=== PATIENT | female | born 2000 | race Caucasian/White ===

== ENCOUNTER 2018-04-02 01:44 | Inpatient (IN) | payer BC ==
--- NOTE | 2018-04-02 02:32 | ED ---
Psych HPI - General Chief Complaint: Psychiatric Symptoms Stated Complaint: Mental Health Time Seen by Provider: 04/02/18 02:24 Source: patient, RN notes reviewed Mode of arrival: ambulatory - History of Present Illness Initial Comments: This is a 17-year-old female who presents to the emergency department with chief complaint of suicidal ideation and attempt. Patient states that she has not been taking her antidepressant and antipsychotic medications for the past one week. She states that many things have been going wrong in her life recently and she does not want to be here anymore. She states that she has had suicidal ideation in the past but tonight was her first attempt. She states that she cut both of her wrists with a razor and her mother found her. Denies any homicidal ideation. Denies visual or auditory hallucinations. Denies alcohol or illicit drug use. Denies any recent illnesses or major medical problems. Denies fever, chills, chest pain, shortness of breath, abdominal pain , nausea or vomiting, constipation or diarrhea, dysuria or hematuria, numbness or tingling, headache or vision changes. - Related Data Previous Rx's Medication Instructions Recorded FLUoxetine HCL [PROzac] 20 mg PO DAILY #30 cap 12/17/17 Imipramine [Tofranil] 25 mg PO HS #30 tab 12/17/17 Loratadine [Claritin] 10 mg PO DAILY tab 12/17/17 OLANZapine [ZyPREXA] 15 mg PO HS #30 tab 12/17/17 Allergies Allergy/AdvReac Type Severity Reaction Status Date / Time No Known Allergies Allergy Verified 04/02/18 06:00 Review of Systems ROS Statement: Those systems with pertinent positive or pertinent negative responses have been documented in the HPI. ROS Other: All systems not noted in ROS Statement are negative. Past Medical History Past Medical History: No Reported History History of Any Multi-Drug Resistant Organisms: None Reported Past Surgical History: No Surgical Hx Reported Past Anesthesia/Blood Transfusion Reactions: No Reported Reaction Past Psychological History: Anxiety, Depression Smoking Status: Current every day smoker Past Alcohol Use History: None Reported Past Drug Use History: Marijuana - Past Family History Mother Family Medical History: No Reported History Father History Unknown: Yes Sister(s) Family Medical History: No Reported History General Exam - General Exam Comments Initial Comments: General: Awake and alert, well-developed; in no apparent distress. HEENT: Head atraumatic, normocephalic. Pupils are equal, round and reactive to light. Extraocular movements intact. Oropharynx moist without erythema or exudate. Neck: Supple. Normal ROM. Cardiovascular: Regular rate and rhythm. No murmurs, rubs or gallops. Chest symmetrical. Respiratory: Lungs clear to auscultation bilaterally. No wheezes, rales or rhonchi. Normal respiratory effort with no use of accessory muscles. Musculoskeletal: Normal ROM, no tenderness bilateral upper and lower extremities. Ambulating normally. Skin: [place], warm and dry. One superficial abrasion right distal forearm. Three superficial lacerations left distal forearm. Neurological: Alert and oriented x3. CN II-XII grossly intact. Speech is fluent and answers are appropriate. No focal neuro deficits. Psychiatric: Normal mood and affect. No overt signs of depression or anxiety noted. Limitations: no limitations Course Vital Signs 04/02/18 04/02/18 01:57 05:21 Temperature 98.0 F 98.5 F Pulse Rate 115 H 80 Respiratory 24 18 Rate Blood Pressure 146/90 112/60 O2 Sat by Pulse 98 97 Oximetry Medical Decision Making - Medical Decision Making This is a 17-year-old female who presented to the emergency department with chief complaint of suicidal ideation and attempt. She states she has been depressed as things have been going wrong in her life. The patient was found cutting her wrists by her mother prior to arrival. Self-inflicted wounds were cleansed and dressings placed. She states that she has not been taking her medications for the past one week. Patient was evaluated by EPS nurse and recommended admission to the psychiatric unit. Patient in agreement with plan. She is in no acute distress. - Lab Data Result diagrams: 04/02/18 08:12 04/02/18 08:12 Disposition Clinical Impression: Attempted suicide, Suicidal ideation Disposition: ADMITTED IP TO THIS HOSP Condition: Stable Is patient prescribed a controlled substance at d/c from ED?: No
[2018-04-02] MEDS ORDERED: MAG HYDROX/AL HYDROX/SIMETH 30 ML CUP PO PRN (05:46)
[2018-04-02] MEDS ORDERED: MAGNESIUM HYDROXIDE 2,400 MG/10 ML CUP PO PRN (05:46)
[2018-04-02] MEDS ORDERED: ACETAMINOPHEN TAB 325 MG TAB PO PRN (05:46)
[2018-04-02] MEDS ORDERED: LORazepam 1 MG TAB PO PRN (05:46)
[2018-04-02 05:58] VITALS: BMI 27.4
[2018-04-02 08:50] LABS: Basophils # (A) 0.1 k/uL (0-0.2); Basophils % (A) 0 %; Eosinophils # (A) 0.2 k/uL (0-0.7); Eosinophils % (A) 2 %; HCT 42.9 % (34.0-46.0); Lymphocytes # (A) 3.4 k/uL (1.0-4.8); Lymphocytes % (A) 23 %; MCH 29.9 pg (25.0-35.0); MCHC 32.6 g/dL (31.0-37.0); MCV 91.8 fL (80.0-100.0); Mean Platelet Volume 7.2; Monocytes # (A) 0.9 k/uL (0-1.0); Monocytes % (A) 6 %; Neutrophils # (A) 9.7 k/uL (1.3-7.7); Neutrophils % (A) 67 %; Platelet Count 379 k/uL (150-450); RBC 4.67 m/uL (3.80-5.40); RDW 13.5 % (11.5-15.5); WBC 14.5 k/uL (4.0-11.0)
[2018-04-02 09:00] LABS: ALT 30 U/L (9-52); AST 23 U/L (14-36); Albumin 4.3 g/dL (3.5-5.0); Alkaline Phosphatase 62 U/L (38-126); Anion Gap 12 mmol/L; Blood Urea Nitrogen 13 mg/dL (7-17); Calcium 9.7 mg/dL (8.4-10.2); Carbon Dioxide 29 mmol/L (22-30); Chloride 104 mmol/L (98-107); Cholesterol 182 mg/dL (<200); Glucose 102 mg/dL (74-99); HDL Cholesterol 47 mg/dL (40-60); LDL Cholesterol,Calculated 112 mg/dL (0-99); Potassium 4.1 mmol/L (3.5-5.1); Sodium 145 mmol/L (137-145); Total Bilirubin 0.2 mg/dL (0.2-1.3); Triglycerides 115 mg/dL (<150)
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
--- NOTE | 2018-04-02 11:51 | P.HPIM ---
History of Present Illness H&P Date: 04/02/18 Chief Complaint: Suicidal ideation and attempt Patient is a 17-year-old female patient of Dr. Huffman who presented to [facility] emergency room with suicidal ideation and attempt. Patient had previous history of suicidal ideation however this is the first time she had a suicidal attempt she tried to cut both wrists with a sharp razor her mother found her and patient was brought into the emergency room. She was evaluated in the emergency room and was admitted to the psychiatry unit medical consultation was requested for management while hospitalized. In the emergency room patient was found to have leukocytosis with white blood count of 14.5 she was also found to have a low TSH of 0.[address] Breanna Huffman as her family physician, she denies any medical problems, she states that Dr. Huffman gives her Prozac and Seroquel but she does not receive any other prescription related to any medical illness. On review of systems patient denies any fever or chills no headache or dizziness no chest pain or shortness of breath no cough no nausea or vomiting no abdominal pain no burning with urination no frequency or urgency. Past Medical History Past Medical History: No Reported History History of Any Multi-Drug Resistant Organisms: None Reported Past Surgical History: No Surgical Hx Reported Past Anesthesia/Blood Transfusion Reactions: No Reported Reaction Past Psychological History: Anxiety, Depression Smoking Status: Current every day smoker Past Alcohol Use History: None Reported Past Drug Use History: Marijuana Additional Drug Use History / Comment(s): Patient states that she smokes MJ twice weekly. - Past Family History Mother Family Medical History: No Reported History Father History Unknown: Yes Sister(s) Family Medical History: No Reported History Medications and Allergies Home Medications Medication Instructions Recorded Confirmed Type FLUoxetine HCL [PROzac] 20 mg PO DAILY #30 cap 12/17/17 Rx Imipramine [Tofranil] 25 mg PO HS #30 tab 12/17/17 Rx Loratadine [Claritin] 10 mg PO DAILY tab 12/17/17 Rx OLANZapine [ZyPREXA] 15 mg PO HS #30 tab 12/17/17 Rx Allergies Allergy/AdvReac Type Severity Reaction Status Date / Time No Known Allergies Allergy Verified 04/02/18 06:00 Physical Exam Vitals: Vital Signs Temp Pulse Pulse Resp BP BP Pulse Ox 04/02/18 05:52 98.4 F 90 16 114/67 99 04/02/18 05:21 98.5 F 80 18 112/60 97 04/02/18 01:57 98.0 F 115 H 24 146/90 98 Intake and Output 04/01/18 04/02/18 04/02/18 22:59 06:59 14:59 Other: Weight 61.7 kg In general patient is alert and oriented in no apparent distress she is calm and answering questions appropriately HEENT head normocephalic and atraumatic Neck is supple no JVD no goiter Chest exam reveals clear respiratory sounds no crackles no wheezing Cardiac exam reveals regular heart sounds S1 and S2 no gallops no murmurs Abdomen is soft nontender no hepatosplenomegaly no palpable masses Extremity exam reveals no edema no cyanosis or clubbing On the left wrist. 3 superficial straight cuts on the right wrist there is 1 semicircular deeper cut. Results CBC & Chem 7: 04/02/18 08:12 04/02/18 08:12 Labs: Abnormal Lab Results - Last 24 Hours (Table) 04/02/18 04/02/18 Range/Units 08:12 08:12 WBC 14.5 H (4.0-11.0) k/uL Neutrophils # 9.7 H (1.3-7.7) k/uL Glucose 102 H (74-99) mg/dL LDL Cholesterol, Calc 112 H (0-99) mg/dL TSH 0.071 L (0.465-4.680) mIU/L Thrombosis Risk Factor Assmnt - Choose All That Apply Each Factor Represents 1 point: Obesity (BMI >25), Oral contraceptives or hormone replacement therapy Other Risk Factors: No Other congenital or acquired thrombophilia - If yes, enter type in comment: No Thrombosis Risk Factor Assessment Total Risk Factor Score: 2 Thrombosis Risk Factor Assessment Level: Low Risk Assessment and Plan Plan: #1 suicidal ideation and attempt management per primary psychiatry team #2 leukocytosis, no clear evidence of infection at this time there is no evidence of cellulitis at the bilateral wrist cocked sites, will check chest x- ray portable and urine analysis to rule out any infectious process. Will recheck CBC in a.m.. #3 depressed TSH possible hyperthyroidism, will repeat shortly patient will benefit of being evaluated by an backup operator as outpatient unfortunately we do not have endocrinology service rounding hospitalist. #4 underlying history of depression and anxiety disorder #5 underlying history of tobacco abuse
--- NOTE | 2018-04-02 13:11 | XR ---
EXAMINATION TYPE: XR chest 1V portable DATE OF EXAM: 04/02/2018 CLINICAL HISTORY: Leukocytosis. TECHNIQUE: Single AP portable frontal upright view of the chest is obtained. COMPARISON: None FINDINGS: There is no focal air space opacity, pleural effusion, or pneumothorax seen. The cardiac silhouette size is within normal limits. The osseous structures are intact. IMPRESSION: No acute process.
[2018-04-02] MEDS: BACITRACIN/POLYMYX 500-10,000 UNIT/GM OINT 14 GM TUBE TOPICAL SCH ×2 (13:57→20:07)
[2018-04-02] MEDS: NICOTINE 21MG/24HR PATCH TRANSDERM SCH (17:43)
[2018-04-02 19:24] LABS: Hemoglobin A1C 5.2 % (4.0-6.0)
[2018-04-02 20:49] LABS: Appearance,Urine Cloudy (Clear); Bacteria,Urine Moderate /hpf; Bilirubin,Urine Negative (Negative); Blood,Urine Negative (Negative); Budding Yeast,Urine Occasional /hpf; Color,Urine Yellow; Glucose,Urine (UA) Negative (Negative); Hyaline Casts,Urine 7 /lpf (0-2); Ketones,Urine Negative (Negative); Leukocyte Esterase,Urine Large (Negative); Mucus,Urine Occasional /hpf; Nitrite,Urine Positive (Negative); PH, Urine 8.5 (5.0-8.0); Protein,Urine Trace (Negative); RBC,Urine 12 /hpf (0-5); Specific Gravity,Urine 1.018 (1.001-1.035); Squamous Epithelial Cell,Urine 8 /hpf (0-4); Urobilinogen,Urine <2.0 mg/dL (<2.0); WBC,Urine 53 /hpf (0-5)
[2018-04-02] MEDS: hydrOXYzine PAMOATE 25 MG CAP PO PRN (20:55)
[2018-04-02 20:56] LABS: Amphetamine Screen,Urine Not Detected (NotDetected); Barbiturate Screen,Urine Not Detected (NotDetected); Benzodiazepines Screen,Urine Detected (NotDetected); Cocaine Screen,Urine Detected (NotDetected); Methadone Screen, Urine Not Detected (NotDetected); Opiate Screen,Urine Not Detected (NotDetected); Oxycodone Screen, Urine Not Detected (NotDetected); Phencyclidine Screen,Urine Not Detected (NotDetected); Tricyclic Antidepressant,Urine Not Detected (NotDetected); Urn Cannabinoid Scrn Detected (NotDetected)
[2018-04-02] MEDS ORDERED: QUEtiapine 100 MG TAB PO SCH (21:00)
[2018-04-03] MEDS: NICOTINE 21MG/24HR PATCH TRANSDERM SCH (09:27)
[2018-04-03] MEDS: SULFAMETHOX-TMP 800-160MG 1 EACH TAB PO SCH ×2 (09:27→20:40)
[2018-04-03] MEDS: BACITRACIN/POLYMYX 500-10,000 UNIT/GM OINT 14 GM TUBE TOPICAL SCH ×3 (09:28→20:41)
[2018-04-03 09:35] LABS: ALT 25 U/L (9-52); AST 24 U/L (14-36); Alkaline Phosphatase 49 U/L (38-126); Anion Gap 15 mmol/L; Blood Urea Nitrogen 14 mg/dL (7-17); Calcium 9.2 mg/dL (8.4-10.2); Carbon Dioxide 21 mmol/L (22-30); Chloride 109 mmol/L (98-107); Glucose 132 mg/dL (74-99); Potassium 4.2 mmol/L (3.5-5.1); Sodium 145 mmol/L (137-145); Total Bilirubin 0.3 mg/dL (0.2-1.3); Total Protein 6.5 g/dL (6.3-8.2)
[2018-04-03 09:43] LABS: Basophils # (A) 0.1 k/uL (0-0.2); Basophils % (A) 1 %; Eosinophils # (A) 0.2 k/uL (0-0.7); Eosinophils % (A) 2 %; HCT 41.1 % (34.0-46.0); HGB 13.7 gm/dL (11.4-16.0); Lymphocytes # (A) 3.3 k/uL (1.0-4.8); Lymphocytes % (A) 29 %; MCH 30.8 pg (25.0-35.0); MCHC 33.2 g/dL (31.0-37.0); MCV 92.6 fL (80.0-100.0); Mean Platelet Volume 7.2; Monocytes # (A) 0.6 k/uL (0-1.0); Monocytes % (A) 5 %; Neutrophils % (A) 61 %; Platelet Count 330 k/uL (150-450); RBC 4.44 m/uL (3.80-5.40); RDW 13.8 % (11.5-15.5); WBC 11.4 k/uL (4.0-11.0)
--- NOTE | 2018-04-03 10:22 | P.PN ---
Progress Note - Text Progress Note Date: 04/03/18 Patient was seen for follow-up examination. She was sleeping when I called her name. She did not attend groups. She said she did not sleep well last night and feels tired today. She asked for different kind of antidepressants today. She is on Seroquel and she was counseled about different antidepressants. It was finally agreed to increase Seroquel to 150 mg at bedtime. She was also advised that most likely medications will not help her much and she needs to learn better coping skills through DBT. She agreed to go to [facility] and have ongoing treatment there instead of seeing a family doctor. She was also advised to attend groups. Her drug screening done yesterday is positive for benzodiazepines cocaine and cannabis. She said she is positive for benzodiazepines since she got some Ativan here in the hospital. Her urinalysis shows UTI and she was started on Bactrim DS yesterday. This is a white ambulatory female with adequate hygiene. She has removed the band age on her left forearm and she has very superficial 3 scratch boone over there which was noted as her suicide attempt prior to admission. Currently she is somewhat sleepy. She does not show any psychomotor agitation or retardation. Her speech is spontaneous and goal-directed. Her affect is appropriate to the thought content. She said she is not thinking about suicide anymore. She denies homicidal ideas. She does not have any clinical evidence of hallucinations or delusional thinking. She is oriented with adequate memory concentration etc. Plan: Increase Seroquel to 150 mg at bedtime, continue groups and other therapies.
[2018-04-03] MEDS: hydrOXYzine PAMOATE 25 MG CAP PO PRN (17:45)
[2018-04-03] MEDS: QUEtiapine 100 MG TAB PO SCH (20:41)
[2018-04-04] MEDS: NICOTINE 21MG/24HR PATCH TRANSDERM SCH (08:54)
[2018-04-04] MEDS: SULFAMETHOX-TMP 800-160MG 1 EACH TAB PO SCH ×2 (08:54→20:47)
[2018-04-04] MEDS: hydrOXYzine PAMOATE 25 MG CAP PO PRN (08:55)
[2018-04-04] MEDS: BACITRACIN/POLYMYX 500-10,000 UNIT/GM OINT 14 GM TUBE TOPICAL SCH ×2 (08:56→20:49)
--- NOTE | 2018-04-04 09:44 | P.PN ---
Progress Note - Text Progress Note Date: 04/04/18 Patient was seen for follow-up examination. She came for the examination without the need for calling her several times like she did yesterday. She said she slept better last night and feels better. She continues to deny suicide thoughts. But she wants to stay here until Saturday, attends groups etc. I explained to her that I will keep her here until Saturday if the insurance company is okay with that and if not I had to discharge her today. She was also advised that for her kind of problems longer hospitalization is not recommended. She said she understood and will agreed to be discharged if the insurance company denies to stay. Today she does not have any distressing on her forearms. She has 1 superficial scratch boone on right forearm and 3 on the left forearm, which is a result of self abusive behavior than a real suicide attempt. This is a white ambulatory female with good hygiene. She is polite and cooperative. She does not show any psychomotor agitation or retardation. Her speech is spontaneous relevant and goal-directed. Her mood is euthymic and affect is appropriate. She denies suicide and homicide thoughts. She denies hallucinations and delusional thinking. Her insight is fair and judgment is improving. She is well oriented with good memory concentration general knowledge etc. Plan: Continue Seroquel 150 mg at bedtime, groups and other therapies. Discharge either today or on Saturday, April 07.
[2018-04-04] MEDS: QUEtiapine 100 MG TAB PO SCH (20:47)
[2018-04-05 06:25] VITALS: RESP 16
[2018-04-05] MEDS: SULFAMETHOX-TMP 800-160MG 1 EACH TAB PO SCH ×2 (08:15→20:33)
[2018-04-05] MEDS: NICOTINE 21MG/24HR PATCH TRANSDERM SCH (08:15)
[2018-04-05] MEDS: BACITRACIN/POLYMYX 500-10,000 UNIT/GM OINT 14 GM TUBE TOPICAL SCH ×2 (08:16→20:33)
--- NOTE | 2018-04-05 11:23 | P.PN ---
Progress Note - Text Interval history: The patient is found in her room she follows me to an interview room. Recent progress notes were reviewed. Vital signs reviewed. The patient states her mood is fine today. She has not been attending groups but she states "I don't do groups". She reports no suicidal ideation intent or plan. She is endorsing no symptoms of psychosis. She reports no recent self- injurious behavior. She has no questions or concerns regarding her medications. Mental status exam: The patient is a female appearing her stated age. She is dressed in her own clothing wearing a T-shirt and pajama bottoms. Eye contact is intermittent. She has no spontaneous speech but provides brief answers to questions asked. She indicates she has no suicidal thoughts or any homicidal ideation intent or plan. She is reporting no auditory or visual hallucinations or any specific delusions. There is no observed evidence of psychosis. She demonstrates no circumstantial thinking, tangential thinking, loose associations or flight of ideas. She does not appear hypomanic or manic. She demonstrates no verbal or physical aggressiveness she demonstrates no abnormal involuntary movements. Plan: The patient will continue on her current psychotropic medication. She is encouraged to participate more in the milieu but she remains resistant. We will monitor her for safety. It appears a discharge is planned for Saturday.
[2018-04-05] MEDS: QUEtiapine 100 MG TAB PO SCH (20:33)
[2018-04-06] MEDS: BACITRACIN/POLYMYX 500-10,000 UNIT/GM OINT 14 GM TUBE TOPICAL SCH ×2 (08:11→19:59)
[2018-04-06] MEDS: SULFAMETHOX-TMP 800-160MG 1 EACH TAB PO SCH ×2 (08:11→20:00)
[2018-04-06] MEDS: NICOTINE 21MG/24HR PATCH TRANSDERM SCH (08:11)
--- NOTE | 2018-04-06 10:19 | P.PN ---
Progress Note - Text Interval history: The patient is found in her room. He continues to isolate in her room. She reports she did go down to breakfast. She states that she will not attend groups. She feels her mood is stabilizing. She reports no participation in self-injurious behavior. She has been speaking with her mother via phone and finds those conversation supportive. She plans to return to her mother's home upon discharge. 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 She has no questions regarding psychotropic medication. Mental status exam: The patient is alert she seated calmly in the chair. She stress in her own clothing. She reports her mood is improving she is reporting no suicidal or homicidal ideation intent or plan. She is endorsing no auditory or visual hallucinations. She demonstrates no tangential thinking loose associations or flight of ideas and does not appear hypomanic or manic. Insight and judgment improving. She demonstrates no verbal or physical aggressiveness. Affect overall is constricted. She provides answers to questions asked but has little spontaneous speech. Plan: The patient will continue on her current medication. She anticipates being discharged tomorrow. We will monitor her for safety. Vital signs reviewed.
[2018-04-06] MEDS: QUEtiapine 100 MG TAB PO SCH (20:00)
[2018-04-07 04:02] VITALS: BP 120/67; PULSE 116; TEMP 98.6
[2018-04-07] MEDS: SULFAMETHOX-TMP 800-160MG 1 EACH TAB PO SCH (08:07)
[2018-04-07] MEDS: BACITRACIN/POLYMYX 500-10,000 UNIT/GM OINT 14 GM TUBE TOPICAL SCH (08:08)
[2018-04-07] MEDS: NICOTINE 21MG/24HR PATCH TRANSDERM SCH (08:08)
--- NOTE | 2018-04-07 09:33 | P.DS ---
Providers Date of admission: 04/02/18 05:16 Expected date of discharge: 04/07/18 Attending physician: Erika Kelley Consults: 04/02/18 05:46 Consult Physician Routine Consulting Provider: Marcelino Walters Consult Reason/Comments: H & P Do you want consulting provider notified?: Yes, Notify in am Primary care physician: Krystina Mora [facility] Course: Patient had her psychiatric evaluation, physical examination and psychosocial evaluation. After psychiatric evaluation she agreed to take Seroquel 100 mg at bedtime. It was later on increased to 150 mg at bedtime since she continued to report of sleeping difficulty. She tolerated Seroquel without any adverse effects. She did not exhibit any self abusive behavior and also denied suicidal thoughts. She wanted to stay in the hospital until today so that she could attend groups. But she has not been attending groups regularly. Her urinalysis showed evidence of UTI and she was started on Bactrim DS 1 twice a day which cleared the infection. Condition on discharge: This is a white ambulatory female with good hygiene. She is polite and cooperative. She does not show any psychomotor agitation or retardation. The self inflicted abrasions/scratch boone have healed completely. Her speech is spontaneous and goal-directed. Her mood is euthymic and affect is appropriate. She continues to deny suicide and homicide thoughts. She also denies hallucinations and delusional thinking. She is well oriented with good memory concentration general knowledge etc. Diagnosis on discharge: Borderline personality disorder F 60.3. NKDA. UTI, resolved. Self inflicted scratch boone on forearms, healed. 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 Patient Condition at Discharge: Good Plan - Discharge Summary Discharge Rx Participant: No New Discharge Prescriptions: New QUEtiapine [SEROquel] 150 mg PO HS 30 Days #30 tab Sulfamethox-Tmp 800-160Mg [Bactrim DS 800-160 mg] 1 each PO BID 2 Days #4 tab Discontinued FLUoxetine HCL [PROzac] 20 mg PO DAILY #30 cap Imipramine [Tofranil] 25 mg PO HS #30 tab Loratadine [Claritin] 10 mg PO DAILY tab OLANZapine [ZyPREXA] 15 mg PO HS #30 tab Discharge Medication List QUEtiapine [SEROquel] 150 mg PO HS 30 Days #30 tab 04/07/18 [Rx] Sulfamethox-Tmp 800-160Mg [Bactrim DS 800-160 mg] 1 each PO BID 2 Days #4 tab [Rx] Follow up Appointment(s)/Referral(s): Krystina Mora MD [Primary Care Provider] - 1-2 days
== END 2018-04-07 15:57 | disposition home or self-care (01) | DRG 883 ==
LOC: EC 01:44 → 3MHU 05:16
PROVIDERS: ADMIT Psychiatry & Neurology Psychiatry; ATTEND Psychiatry & Neurology Psychiatry
DX: F60.3 Borderline personality disorder (principal); F33.9 Major depressive disorder, recurrent, unspecified; N39.0 Urinary tract infection, site not specified; F17.200 Nicotine dependence, unspecified, uncomplicated; F41.9 Anxiety disorder, unspecified; S61.511A Laceration without foreign body of right wrist, initial encounter; S61.512A Laceration without foreign body of left wrist, initial encounter; X78.9XXA Intentional self-harm by unspecified sharp object, initial encounter; Z79.899 Other long term (current) drug therapy; Z81.8 Family history of other mental and behavioral disorders; Z91.5 Personal history of self-harm; T14.91XA Suicide attempt, initial encounter
CPT/HCPCS: 71045; 80053; 80061; 80306; 81001; 81025; 82075; 83036; 84443; 85025; 99285

== ENCOUNTER 2018-04-23 14:33 | Inpatient (IN) | payer BC ==
[2018-04-23 14:51] LABS: Glucose,Whole Blood 77 mg/dL (75-99)
[2018-04-23] MEDS ORDERED: SODIUM CHLORIDE 0.9% 1,000 ML IV STA (14:59)
--- NOTE | 2018-04-23 15:12 | ED ---
General Adult HPI - General Chief complaint: Abdominal Pain Stated complaint: Syncope Time Seen by Provider: 04/23/18 14:44 Source: patient, EMS Mode of arrival: EMS Limitations: no limitations - History of Present Illness Initial comments: Leonor Rock is a 17-year-old female with no significant past medical history who presents to the emergency department today for evaluation of nausea, vomiting, lightheadedness and 2 episodes of syncope this evening. Patient reports that she was in her usual state of health throughout the day yesterday, she ate a normal diet including a sandwich and chicken for dinner. She states that her family ate the same food and nobody has become ill. She reports that she slept comfortably throughout the night and woke today around noon. She states that after waking she was experiencing abdominal cramping and nausea. She reports that she's had approximately 20 episodes of nonbloody vomiting since noon today. She states that upon standing she began to feel very lightheaded and as though she couldn't catch her breath. She believes that she has passed out 2 times this afternoon. She is uncertain how long she was passed out for. She states that nobody witnessed these episodes. She states that both times she woke up spontaneously. After the second time she decided to call 911 for transport to the hospital for further evaluation. Denies any history of any known abdominal pathology, cyclic vomiting or inflammatory bowel disease. She denies any history of passing out in the past. She denies any personal or family history of clotting disorder, DVTs or PEs. She is not experiencing shortness of breath prior to these episodes. She denies any chest pain. She is not short of breath upon initial evaluation. She reports that her last menstrual period was approximately a month ago and that she is due to start her menses soon. She states she has no concern for any possibility of . Patient's mother also states that the patient has recently noted that she's bruising very easily. She has noted bruises on her bilateral lateral thighs. The bruises or well-healing but the patient cannot recall how she is obtained these bruises. EMS reports that upon their initial evaluation the patient was mildly hypotensive with a systolic blood pressure of 96 and a blood glucose in the 60s. She was given oral dextrose, Zofran and IV fluids. They report that she has been hemodynamically stable during transport. No further episodes of syncope during transport. - Related Data Home Medications Medication Instructions Recorded Confirmed No Known Home Medications [No 04/23/18 04/23/18 Known Home Medications] Allergies Allergy/AdvReac Type Severity Reaction Status Date / Time No Known Allergies Allergy Verified 04/23/18 15:21 Review of Systems ROS Statement: Those systems with pertinent positive or pertinent negative responses have been documented in the HPI. ROS Other: All systems not noted in ROS Statement are negative. Constitutional: Reports: chills ENT: Denies: throat pain Respiratory: Denies: cough, wheezes Cardiovascular: Reports: syncope (2 times today, both times it occurred upon standing). Denies: chest pain, palpitations, dyspnea on exertion, orthopnea, edema Endocrine: Reports: fatigue Gastrointestinal: Reports: abdominal pain, nausea, vomiting. Denies: diarrhea, constipation Genitourinary: Denies: dysuria, abnormal menses Musculoskeletal: Denies: back pain Skin: Denies: rash, lesions Neurological: Reports: headache Hematological/Lymphatic: Reports: easy bruising. Denies: easy bleeding Past Medical History Past Medical History: No Reported History History of Any Multi-Drug Resistant Organisms: None Reported Past Surgical History: Adenoidectomy Additional Past Surgical History / Comment(s): Eyelid surgery. Past Anesthesia/Blood Transfusion Reactions: No Reported Reaction Past Psychological History: Anxiety, Depression Smoking Status: Current every day smoker Past Alcohol Use History: None Reported Past Drug Use History: Marijuana - Past Family History Mother Family Medical History: No Reported History Father History Unknown: Yes Sister(s) Family Medical History: No Reported History General Exam Limitations: no limitations General appearance: alert Head exam: Present: atraumatic, normocephalic Eye exam: Present: normal appearance, PERRL, EOMI ENT exam: Present: normal exam, normal oropharynx Neck exam: Present: normal inspection Respiratory exam: Present: normal lung sounds bilaterally. Absent: respiratory distress, wheezes Cardiovascular Exam: Present: normal rhythm, tachycardia GI/Abdominal exam: Present: soft, tenderness, normal bowel sounds. Absent: distended, guarding, rebound, rigid, organomegaly, mass Extremities exam: Present: normal inspection, full ROM, normal capillary refill. Absent: tenderness, pedal edema, joint swelling Back exam: Present: normal inspection, full ROM Neurological exam: Present: alert, oriented X3 Psychiatric exam: Present: depressed Skin exam: Present: warm, dry, other (Well healing contusions of the bilateral lateral thighs.) Course Vital Signs 04/23/18 04/23/18 04/23/18 14:47 15:58 16:50 Temperature 97.7 F Pulse Rate 78 97 100 Respiratory 16 17 20 Rate Blood Pressure 91/43 103/51 92/52 O2 Sat by Pulse 99 97 100 Oximetry 04/23/18 04/23/18 04/23/18 17:45 18:45 19:45 Temperature Pulse Rate 107 H 106 H 102 H Respiratory 20 20 20 Rate Blood Pressure 84/42 92/56 96/56 O2 Sat by Pulse 97 99 99 Oximetry 04/23/18 04/23/18 20:26 21:07 Temperature Pulse Rate 102 H 106 H Respiratory 18 18 Rate Blood Pressure 87/48 91/50 O2 Sat by Pulse 100 100 Oximetry EKG Findings - EKG Comments: EKG Findings:: EKG is sinus tachycardia with a rate of 101, there are no acute ST elevations or depressions. There is no evidence of acute ischemia, infarction or arrhythmia. No evidence of acute right heart strain. Medical Decision Making - Medical Decision Making The patient was seen and evaluated, history was obtained from the patient, patient's mother bedside and EMS Patient with persistent nausea and vomiting for 3 hours. Mild hypotension and hypoglycemia upon initial evaluation. Reports 2 episodes of syncope. The patient received Zofran prior to arrival in the emergency department, upon initial evaluation the patient has had one further episode of vomiting. Labs and imaging were ordered Labs with a critical high leukocytosis as well as lactic acidosis of uncertain etiology Patient has an elevated INR of 1.7, uncertain etiology. Patient not on any anticoagulant medications. Transaminases otherwise normal. Workup is negative - troponin and d-dimer negative IV fluids are infusing. The patient remains mildly hypotensive, at this time I do not feel she has an infectious source and antibiotics were not ordered Urine drug screen reveals positive cocaine, when I reevaluated the patient she does admit to cocaine use 2 days ago. She states she didn't think it contributed to her symptoms today. Ultrasound and CT with no acute pathology identified. Patient received a total 4 L of IV fluids throughout her stay in the ER. Despite this she remained hypotensive and symptomatic orthostasis. Patient states she doesn't feel comfortable going home at this time and she is not feeling well. She has been able tolerate oral intake of apple juice and water. At this time I'll plan to place the patient on observation for recurrent syncope, persistent attention, leukocytosis which is likely reactive to recent cocaine use and vomiting Patient care was discussed with Dr. Walters who accepts the patient to his service - Lab Data Result diagrams: 04/23/18 15:10 04/23/18 15:10 Lab Results 04/23/18 04/23/18 04/23/18 Range/Units 14:49 15:10 15:10 WBC (4.0-11.0) k/uL RBC (3.80-5.40) m/uL Hgb (11.4-16.0) gm/dL Hct (34.0-46.0) % MCV (80.0-100.0) fL MCH (25.0-35.0) pg MCHC (31.0-37.0) g/dL RDW (11.5-15.5) % Plt Count (150-450) k/uL Neutrophils % % Lymphocytes % % Monocytes % % Eosinophils % % Basophils % % Neutrophils # (1.3-7.7) k/uL Lymphocytes # (1.0-4.8) k/uL Monocytes # (0-1.0) k/uL Eosinophils # (0-0.7) k/uL Basophils # (0-0.2) k/uL PT 15.8 H (9.0-12.0) sec INR 1.7 H (<1.2) APTT 22.1 (22.0-30.0) sec D-Dimer 0.50 (<0.60) mg/L FEU Sodium (137-145) mmol/L Potassium (3.5-5.1) mmol/L Chloride (98-107) mmol/L Carbon Dioxide (22-30) mmol/L Anion Gap mmol/L BUN (7-17) mg/dL Creatinine (0.52-1.04) mg/dL Est GFR (CKD-EPI)AfAm (>60 ml/min/1.73 sqM) Est GFR (CKD-EPI)NonAf (>60 ml/min/1.73 sqM) Glucose (74-99) mg/dL POC Glucose (mg/dL) 77 (75-99) mg/dL POC Glu Cement Loader ID Bre Haynes Lactic Ac Sepsis Rflx Plasma Lactic Acid Eliezer (0.7-2.0) mmol/L Calcium (8.4-10.2) mg/dL Total Bilirubin (0.2-1.3) mg/dL AST (14-36) U/L ALT (9-52) U/L Alkaline Phosphatase (38-126) U/L Total Creatine Kinase 43 (30-135) U/L CK-MB (CK-2) <0.2 (0.0-2.4) ng/mL CK-MB (CK-2) Rel Index Troponin I <0.012 (0.000-0.034) ng/mL Total Protein (6.3-8.2) g/dL Albumin (3.5-5.0) g/dL Lipase (23-300) U/L Urine Color Urine Appearance (Clear) Urine pH (5.0-8.0) Ur Specific [place] (1.001-1.035) Urine Protein (Negative) Urine Glucose (UA) (Negative) Urine Ketones (Negative) Urine Blood (Negative) Urine Nitrite (Negative) Urine Bilirubin (Negative) Urine Urobilinogen (<2.0) mg/dL Ur Leukocyte Esterase (Negative) Urine RBC (0-5) /hpf Urine WBC (0-5) /hpf Ur Squamous Epith Cells (0-4) /hpf Amorphous Sediment (None) /hpf Hyaline Casts (0-2) /lpf Urine Mucus (None) /hpf Urine HCG, Qual (Not Detectd) Urine Opiates Screen (NotDetected) Ur Oxycodone Screen (NotDetected) Urine Methadone Screen (NotDetected) Ur Propoxyphene Screen (NotDetected) Ur Barbiturates Screen (NotDetected) U Tricyclic Antidepress (NotDetected) Ur Phencyclidine Scrn (NotDetected) Ur Amphetamines Screen (NotDetected) U Methamphetamines Scrn (NotDetected) U Benzodiazepines Scrn (NotDetected) Urine Cocaine Screen (NotDetected) U Marijuana (THC) Screen (NotDetected) 04/23/18 04/23/18 04/23/18 Range/Units 15:10 15:10 15:10 WBC 31.7 H* (4.0-11.0) k/uL RBC 4.32 (3.80-5.40) m/uL Hgb 13.4 (11.4-16.0) gm/dL Hct 39.9 (34.0-46.0) % MCV 92.4 (80.0-100.0) fL MCH 31.0 (25.0-35.0) pg MCHC 33.5 (31.0-37.0) g/dL RDW 13.7 (11.5-15.5) % Plt Count 256 (150-450) k/uL Neutrophils % 87 % Lymphocytes % 7 % Monocytes % 5 % Eosinophils % 0 % Basophils % 0 % Neutrophils # 27.6 H (1.3-7.7) k/uL Lymphocytes # 2.3 (1.0-4.8) k/uL Monocytes # 1.5 H (0-1.0) k/uL Eosinophils # 0.1 (0-0.7) k/uL Basophils # 0.1 (0-0.2) k/uL PT (9.0-12.0) sec INR (<1.2) APTT (22.0-30.0) sec D-Dimer (<0.60) mg/L FEU Sodium 145 (137-145) mmol/L Potassium 4.2 (3.5-5.1) mmol/L Chloride 106 (98-107) mmol/L Carbon Dioxide 19 L (22-30) mmol/L Anion Gap 20 mmol/L BUN 19 H (7-17) mg/dL Creatinine 0.90 (0.52-1.04) mg/dL Est GFR (CKD-EPI)AfAm >90 (>60 ml/min/1.73 sqM) Est GFR (CKD-EPI)NonAf >90 (>60 ml/min/1.73 sqM) Glucose 78 (74-99) mg/dL POC Glucose (mg/dL) (75-99) mg/dL POC Glu Cement Loader ID Lactic Ac Sepsis Rflx Plasma Lactic Acid Eliezer 4.6 H* (0.7-2.0) mmol/L Calcium 9.7 (8.4-10.2) mg/dL Total Bilirubin 0.5 (0.2-1.3) mg/dL AST 30 (14-36) U/L ALT 36 (9-52) U/L Alkaline Phosphatase 69 (38-126) U/L Total Creatine Kinase (30-135) U/L CK-MB (CK-2) (0.0-2.4) ng/mL CK-MB (CK-2) Rel Index Troponin I (0.000-0.034) ng/mL Total Protein 6.7 (6.3-8.2) g/dL Albumin 4.3 (3.5-5.0) g/dL Lipase 84 (23-300) U/L Urine Color Urine Appearance (Clear) Urine pH (5.0-8.0) Ur Specific [place] (1.001-1.035) Urine Protein (Negative) Urine Glucose (UA) (Negative) Urine Ketones (Negative) Urine Blood (Negative) Urine Nitrite (Negative) Urine Bilirubin (Negative) Urine Urobilinogen (<2.0) mg/dL Ur Leukocyte Esterase (Negative) Urine RBC (0-5) /hpf Urine WBC (0-5) /hpf Ur Squamous Epith Cells (0-4) /hpf Amorphous Sediment (None) /hpf Hyaline Casts (0-2) /lpf Urine Mucus (None) /hpf Urine HCG, Qual (Not Detectd) Urine Opiates Screen (NotDetected) Ur Oxycodone Screen (NotDetected) Urine Methadone Screen (NotDetected) Ur Propoxyphene Screen (NotDetected) Ur Barbiturates Screen (NotDetected) U Tricyclic Antidepress (NotDetected) Ur Phencyclidine Scrn (NotDetected) Ur Amphetamines Screen (NotDetected) U Methamphetamines Scrn (NotDetected) U Benzodiazepines Scrn (NotDetected) Urine Cocaine Screen (NotDetected) U Marijuana (THC) Screen (NotDetected) 04/23/18 04/23/18 04/23/18 Range/Units 15:40 17:05 17:05 WBC (4.0-11.0) k/uL RBC (3.80-5.40) m/uL Hgb (11.4-16.0) gm/dL Hct (34.0-46.0) % MCV (80.0-100.0) fL MCH (25.0-35.0) pg MCHC (31.0-37.0) g/dL RDW (11.5-15.5) % Plt Count (150-450) k/uL Neutrophils % % Lymphocytes % % Monocytes % % Eosinophils % % Basophils % % Neutrophils # (1.3-7.7) k/uL Lymphocytes # (1.0-4.8) k/uL Monocytes # (0-1.0) k/uL Eosinophils # (0-0.7) k/uL Basophils # (0-0.2) k/uL PT (9.0-12.0) sec INR (<1.2) APTT (22.0-30.0) sec D-Dimer (<0.60) mg/L FEU Sodium (137-145) mmol/L Potassium (3.5-5.1) mmol/L Chloride (98-107) mmol/L Carbon Dioxide (22-30) mmol/L Anion Gap mmol/L BUN (7-17) mg/dL Creatinine (0.52-1.04) mg/dL Est GFR (CKD-EPI)AfAm (>60 ml/min/1.73 sqM) Est GFR (CKD-EPI)NonAf (>60 ml/min/1.73 sqM) Glucose (74-99) mg/dL POC Glucose (mg/dL) (75-99) mg/dL POC Glu Cement Loader ID Lactic Ac Sepsis Rflx Y Plasma Lactic Acid Eliezer (0.7-2.0) mmol/L Calcium (8.4-10.2) mg/dL Total Bilirubin (0.2-1.3) mg/dL AST (14-36) U/L ALT (9-52) U/L Alkaline Phosphatase (38-126) U/L Total Creatine Kinase (30-135) U/L CK-MB (CK-2) (0.0-2.4) ng/mL CK-MB (CK-2) Rel Index Troponin I (0.000-0.034) ng/mL Total Protein (6.3-8.2) g/dL Albumin (3.5-5.0) g/dL Lipase (23-300) U/L Urine Color Yellow Urine Appearance Cloudy H (Clear) Urine pH 6.5 (5.0-8.0) Ur Specific [place] 1.019 (1.001-1.035) Urine Protein 1+ H (Negative) Urine Glucose (UA) Negative (Negative) Urine Ketones 2+ H (Negative) Urine Blood Negative (Negative) Urine Nitrite Negative (Negative) Urine Bilirubin Negative (Negative) Urine Urobilinogen <2.0 (<2.0) mg/dL Ur Leukocyte Esterase Large H (Negative) Urine RBC 4 (0-5) /hpf Urine WBC 28 H (0-5) /hpf Ur Squamous Epith Cells 19 H (0-4) /hpf Amorphous Sediment Rare H (None) /hpf Hyaline Casts 87 H (0-2) /lpf Urine Mucus Many H (None) /hpf Urine HCG, Qual Not Detected (Not Detectd) Urine Opiates Screen (NotDetected) Ur Oxycodone Screen (NotDetected) Urine Methadone Screen (NotDetected) Ur Propoxyphene Screen (NotDetected) Ur Barbiturates Screen (NotDetected) U Tricyclic Antidepress (NotDetected) Ur Phencyclidine Scrn (NotDetected) Ur Amphetamines Screen (NotDetected) U Methamphetamines Scrn (NotDetected) U Benzodiazepines Scrn (NotDetected) Urine Cocaine Screen (NotDetected) U Marijuana (THC) Screen (NotDetected) 04/23/18 04/23/18 Range/Units 17:05 19:20 WBC (4.0-11.0) k/uL RBC (3.80-5.40) m/uL Hgb (11.4-16.0) gm/dL Hct (34.0-46.0) % MCV (80.0-100.0) fL MCH (25.0-35.0) pg MCHC (31.0-37.0) g/dL RDW (11.5-15.5) % Plt Count (150-450) k/uL Neutrophils % % Lymphocytes % % Monocytes % % Eosinophils % % Basophils % % Neutrophils # (1.3-7.7) k/uL Lymphocytes # (1.0-4.8) k/uL Monocytes # (0-1.0) k/uL Eosinophils # (0-0.7) k/uL Basophils # (0-0.2) k/uL PT (9.0-12.0) sec INR (<1.2) APTT (22.0-30.0) sec D-Dimer (<0.60) mg/L FEU Sodium (137-145) mmol/L Potassium (3.5-5.1) mmol/L Chloride (98-107) mmol/L Carbon Dioxide (22-30) mmol/L Anion Gap mmol/L BUN (7-17) mg/dL Creatinine (0.52-1.04) mg/dL Est GFR (CKD-EPI)AfAm (>60 ml/min/1.73 sqM) Est GFR (CKD-EPI)NonAf (>60 ml/min/1.73 sqM) Glucose (74-99) mg/dL POC Glucose (mg/dL) (75-99) mg/dL POC Glu Cement Loader ID Lactic Ac Sepsis Rflx Plasma Lactic Acid Eliezer 1.2 (0.7-2.0) mmol/L Calcium (8.4-10.2) mg/dL Total Bilirubin (0.2-1.3) mg/dL AST (14-36) U/L ALT (9-52) U/L Alkaline Phosphatase (38-126) U/L Total Creatine Kinase (30-135) U/L CK-MB (CK-2) (0.0-2.4) ng/mL CK-MB (CK-2) Rel Index Troponin I (0.000-0.034) ng/mL Total Protein (6.3-8.2) g/dL Albumin (3.5-5.0) g/dL Lipase (23-300) U/L Urine Color Urine Appearance (Clear) Urine pH (5.0-8.0) Ur Specific [place] (1.001-1.035) Urine Protein (Negative) Urine Glucose (UA) (Negative) Urine Ketones (Negative) Urine Blood (Negative) Urine Nitrite (Negative) Urine Bilirubin (Negative) Urine Urobilinogen (<2.0) mg/dL Ur Leukocyte Esterase (Negative) Urine RBC (0-5) /hpf Urine WBC (0-5) /hpf Ur Squamous Epith Cells (0-4) /hpf Amorphous Sediment (None) /hpf Hyaline Casts (0-2) /lpf Urine Mucus (None) /hpf Urine HCG, Qual (Not Detectd) Urine Opiates Screen Not Detected (NotDetected) Ur Oxycodone Screen Not Detected (NotDetected) Urine Methadone Screen Not Detected (NotDetected) Ur Propoxyphene Screen Not Detected (NotDetected) Ur Barbiturates Screen Not Detected (NotDetected) U Tricyclic Antidepress Not Detected (NotDetected) Ur Phencyclidine Scrn Not Detected (NotDetected) Ur Amphetamines Screen Not Detected (NotDetected) U Methamphetamines Scrn Not Detected (NotDetected) U Benzodiazepines Scrn Not Detected (NotDetected) Urine Cocaine Screen Detected H (NotDetected) U Marijuana (THC) Screen Not Detected (NotDetected) Disposition Clinical Impression: Syncope, Leukocytosis, unspecified, Cocaine abuse, Lactic acidosis, Hypotension Disposition: ADMITTED IP TO THIS HOSP Referrals: Krystina Mora MD [Primary Care Provider] - 1-2 days Decision Time: 21:37
[2018-04-23 15:28] LABS: Basophils # (A) 0.1 k/uL (0-0.2); Basophils % (A) 0 %; Eosinophils # (A) 0.1 k/uL (0-0.7); Eosinophils % (A) 0 %; HCT 39.9 % (34.0-46.0); HGB 13.4 gm/dL (11.4-16.0); Lymphocytes # (A) 2.3 k/uL (1.0-4.8); Lymphocytes % (A) 7 %; MCHC 33.5 g/dL (31.0-37.0); MCV 92.4 fL (80.0-100.0); Mean Platelet Volume 7.4; Monocytes # (A) 1.5 k/uL (0-1.0); Monocytes % (A) 5 %; Neutrophils # (A) 27.6 k/uL (1.3-7.7); Neutrophils % (A) 87 %; Platelet Count 256 k/uL (150-450); RBC 4.32 m/uL (3.80-5.40); RDW 13.7 % (11.5-15.5)
[2018-04-23 15:32] LABS: ALT 36 U/L (9-52); AST 30 U/L (14-36); Albumin 4.3 g/dL (3.5-5.0); Alkaline Phosphatase 69 U/L (38-126); Anion Gap 20 mmol/L; Blood Urea Nitrogen 19 mg/dL (7-17); Calcium 9.7 mg/dL (8.4-10.2); Carbon Dioxide 19 mmol/L (22-30); Chloride 106 mmol/L (98-107); Glucose 78 mg/dL (74-99); Lipase 84 U/L (23-300); Potassium 4.2 mmol/L (3.5-5.1); Sodium 145 mmol/L (137-145); Total Bilirubin 0.5 mg/dL (0.2-1.3); Total Protein 6.7 g/dL (6.3-8.2)
[2018-04-23 15:33] LABS: WBC 31.7 k/uL (4.0-11.0)
[2018-04-23 15:36] LABS: Creatine Kinase 43 U/L (30-135); D-Dimer 0.5 mg/L FEU (<0.60); INR 1.7 (<1.2); Partial Thromboplastin Time 22.1 sec (22.0-30.0); Prothrombin Time 15.8 sec (9.0-12.0)
[2018-04-23] MEDS ORDERED: SODIUM CHLORIDE 0.9% 1,000 ML IV ONE (15:47)
[2018-04-23 15:49] LABS: Creatine Kinase MB <0.2 ng/mL (0.0-2.4); Troponin I <0.012 ng/mL (0.000-0.034)
--- NOTE | 2018-04-23 15:50 | XR ---
EXAMINATION TYPE: XR abdomen acute w cxr DATE OF EXAM: 04/23/2018 COMPARISON: 04/02/2018 HISTORY: Abdominal pain, nausea and vomiting. TECHNIQUE: Supine and upright upright views of the abdomen are obtained. Single view chest radiogra ph was also obtained. FINDINGS: There is no focal air space opacity, pleural effusion, or pneumothorax seen. The cardiac silhouette size is within normal limits. The osseous structures are intact. Overall there is a paucity of bowel gas. Scattered gas is seen in non-distended small bowel loops. Ga s and fecal material is seen in non-distended colon. There is no visceromegaly, pneumoperitoneum, or abnormal calcification appreciated. The lung bases are clear and the osseous structures are intact. IMPRESSION: No acute cardiopulmonary process. Nonobstructed bowel gas pattern.
--- NOTE | 2018-04-23 16:42 | US ---
EXAMINATION TYPE: US abdomen complete DATE OF EXAM: 04/23/2018 COMPARISON: NONE CLINICAL HISTORY: abdominal pain. Generalized ABD pain with N&V EXAM MEASUREMENTS: Liver Length: 12.1 cm Gallbladder Wall: 0.2 cm CBD: 0.2 cm Spleen: 8.3 cm Right Kidney: 11.2 x 4.4 x 4.1 cm Left Kidney: 10.1 x 4.4 x 4.6 cm Pancreas: wnl, tail obscured by overlying bowel gas Liver: Left lobe difficult to visualize due to monitor leads/ utilized portions appeared wnl Gallbladder: wnl Evidence for sonographic Seymour's sign: No CBD: wnl Spleen: wnl Right Kidney: wnl Left Kidney: wnl, upper pole gassed out Upper IVC: wnl Abd Aorta: wnl The liver is homogenous. The intrahepatic portion of the IVC and proximal abdominal aorta are within normal limits. There is no evidence of cholelithiasis. Common bile duct is unremarkable. The visu alized portions of the pancreas are homogenous. The spleen is unremarkable. Kidneys are symmetric a nd free of hydronephrosis. No renal lesions are seen. IMPRESSION: Suboptimal visualization of the left upper pole of the kidney, pancreas, and left hepatic lobe otherwise unremarkable abdominal ultrasound with no sonographic evidence of cholelithiasis or a cute cholecystitis.
[2018-04-23 17:23] LABS: Amorphous Sediment,Urine Rare /hpf; Appearance,Urine Cloudy (Clear); Bilirubin,Urine Negative (Negative); Blood,Urine Negative (Negative); Color,Urine Yellow; Glucose,Urine (UA) Negative (Negative); Hyaline Casts,Urine 87 /lpf (0-2); Ketones,Urine 2+ (Negative); Leukocyte Esterase,Urine Large (Negative); Mucus,Urine Many /hpf; Nitrite,Urine Negative (Negative); PH, Urine 6.5 (5.0-8.0); Protein,Urine 1+ (Negative); RBC,Urine 4 /hpf (0-5); Specific Gravity,Urine 1.019 (1.001-1.035); Squamous Epithelial Cell,Urine 19 /hpf (0-4); Urobilinogen,Urine <2.0 mg/dL (<2.0); WBC,Urine 28 /hpf (0-5)
[2018-04-23 17:31] LABS: Amphetamine Screen,Urine Not Detected (NotDetected); Barbiturate Screen,Urine Not Detected (NotDetected); Benzodiazepines Screen,Urine Not Detected (NotDetected); Cocaine Screen,Urine Detected (NotDetected); Methadone Screen, Urine Not Detected (NotDetected); Opiate Screen,Urine Not Detected (NotDetected); Oxycodone Screen, Urine Not Detected (NotDetected); Phencyclidine Screen,Urine Not Detected (NotDetected); Tricyclic Antidepressant,Urine Not Detected (NotDetected); Urn Cannabinoid Scrn Not Detected (NotDetected)
--- NOTE | 2018-04-23 18:34 | CT ---
EXAMINATION TYPE: CT abdomen pelvis w con DATE OF EXAM: 04/23/2018 COMPARISON: NONE HISTORY: Generalized pain with flu like symptoms CT DLP: 430 mGycm Automated exposure control for dose reduction was used. TECHNIQUE: Helical acquisition of images was performed from the lung bases through the pelvis. CONTRAST: Performed without Oral Contrast and with IV Contrast, patient injected with 100 mL of Isovu e 300. FINDINGS: LUNG BASES: No significant abnormality is appreciated. LIVER/GB: No significant abnormality is appreciated. PANCREAS: No significant abnormality is seen. SPLEEN: No significant abnormality is seen. ADRENALS: No significant abnormality is seen. KIDNEYS: No significant abnormality is seen. FREE AIR: No free air is visualized. RETROPERITONEAL ADENOPATHY: None visualized REPRODUCTIVE ORGANS: No significant abnormality is seen URINARY BLADDER: No significant abnormality is seen. PELVIC ADENOPATHY: None visualized. OSSEOUS STRUCTURES: No significant abnormality is seen. BOWEL: No significant abnormality is seen. VASCULATURE: Unremarkable. IMPRESSION: NO ACUTE PROCESS.
[2018-04-23] MEDS ORDERED: SODIUM CHLORIDE 0.9% 2,000 ML IV ONE (19:02)
[2018-04-23] MEDS ORDERED: MAG HYDROX/AL HYDROX/SIMETH 30 ML CUP PO PRN (19:03)
[2018-04-23] MEDS ORDERED: LIDOCAINE VISCOUS 2% 15 ML CUP MUCOUS MEM ONE (19:03)
[2018-04-23] MEDS ORDERED: ONDANSETRON 4 MG/2 ML VIAL IVP PRN (21:37)
[2018-04-23] MEDS ORDERED: NALOXONE 0.4 MG/ML 1 ML VIAL IV PRN (21:37)
[2018-04-23] MEDS: SODIUM CHLORIDE 0.9% 1,000 ML IV SCH (22:08)
[2018-04-24] MEDS: SODIUM CHLORIDE 0.9% 1,000 ML IV SCH ×3 (07:35→13:21)
[2018-04-24 07:37] VITALS: RESP 16
[2018-04-24] MEDS: FAMOTIDINE 20 MG TAB PO SCH ×2 (09:00→21:10)
[2018-04-24 09:37] LABS: Basophils # (A) 0.1 k/uL (0-0.2); Basophils % (A) 0 %; Eosinophils # (A) 0.2 k/uL (0-0.7); Eosinophils % (A) 1 %; HCT 34.1 % (34.0-46.0); HGB 11.3 gm/dL (11.4-16.0); Lymphocytes # (A) 3.3 k/uL (1.0-4.8); Lymphocytes % (A) 25 %; MCH 30.4 pg (25.0-35.0); MCHC 33.2 g/dL (31.0-37.0); MCV 91.5 fL (80.0-100.0); Mean Platelet Volume 7.5; Monocytes # (A) 0.6 k/uL (0-1.0); Monocytes % (A) 5 %; Neutrophils # (A) 8.6 k/uL (1.3-7.7); Neutrophils % (A) 67 %; Platelet Count 226 k/uL (150-450); RBC 3.73 m/uL (3.80-5.40); RDW 14.1 % (11.5-15.5)
[2018-04-24] MEDS ORDERED: ACETAMINOPHEN TAB 500 MG TAB ONE (10:59)
[2018-04-24] MEDS: ACETAMINOPHEN TAB 500 MG TAB PO PRN ×3 (11:00→23:08)
[2018-04-24] MEDS: cefTRIAXone IN SWFI 1,000 MG/10 ML SYRINGE IVP SCH (11:01)
[2018-04-24 11:32] LABS: Anion Gap 7 mmol/L; Blood Urea Nitrogen 8 mg/dL (7-17); Calcium 8.1 mg/dL (8.4-10.2); Carbon Dioxide 22 mmol/L (22-30); Chloride 111 mmol/L (98-107); Glucose 114 mg/dL (74-99); Potassium 3.7 mmol/L (3.5-5.1); Sodium 140 mmol/L (137-145)
[2018-04-24 11:53] LABS: INR 2.1 (<1.2); Prothrombin Time 19.4 sec (9.0-12.0)
[2018-04-24 12:30] LABS: T4, Free (Free Thyroxine) 1.54 ng/dL (0.78-2.19)
[2018-04-24] MEDS ORDERED: PHYTONADIONE ORAL 5 MG/5 ML ORAL.SYRG PO STA (12:59)
--- NOTE | 2018-04-24 13:06 | P.HPIM ---
History of Present Illness H&P Date: 04/24/18 Chief Complaint: Nausea and vomiting This is a 17-year-old female with no significant past medical history of presented to the emergency room with worsening nausea, vomiting, and dizziness. According to patient she has been doing fairly well up until couple of days ago when she started feeling nauseous and yesterday her nausea became severe and since started vomiting most and undigested food and eventually BiPAP. She denies any blood in her vomitus. She said that she was having normal bowel movement otherwise. She denies any significant abdominal pain. Patient was significantly dizzy mostly when she stands up. She was brought to the emergency room and was found to have significant hypotension. She was resuscitated with IV fluid aggressively and received approximately 3 L of fluid. Computed tomography scan of the abdomen and pelvis showed no acute findings. Her lab work initially showed significant leukocytosis with no obvious source of infection. Patient was also noted to be coagulopathic with INR of 1.7. Her mother states that she was bruising easily recently. Patient is not on any anticoagulation. She denies any past medical history. Urine toxicology screen was positive for cocaine and when confronted by ER physician patient admits to use cocaine occasionally. She reports last use 2 days ago. Her blood pressure this morning was borderline low with systolic in the high 90s and low 100. Orthostatic blood pressure checked and negative. Repeat INR showed worsening to 2.1. There is no evidence of ongoing bleed. Platelet count is within normal range. Review of Systems Review of system: 14 points review of systems were obtained and were negative except to what were mentioned in the HPI. Past Medical History Past Medical History: No Reported History History of Any Multi-Drug Resistant Organisms: None Reported Past Surgical History: Adenoidectomy Additional Past Surgical History / Comment(s): Eyelid surgery. Past Anesthesia/Blood Transfusion Reactions: No Reported Reaction Past Psychological History: Anxiety, Depression Smoking Status: Current every day smoker Past Alcohol Use History: None Reported Past Drug Use History: Marijuana Additional Drug Use History / Comment(s): Patient states that she smokes MJ twice weekly. - Past Family History Mother Family Medical History: No Reported History Father History Unknown: Yes Sister(s) Family Medical History: No Reported History Medications and Allergies Home Medications Medication Instructions Recorded Confirmed Type No Known Home Medications [No 04/23/18 04/23/18 History Known Home Medications] Allergies Allergy/AdvReac Type Severity Reaction Status Date / Time No Known Allergies Allergy Verified 04/23/18 15:21 Physical Exam Vitals: Vital Signs Temp Pulse Pulse Resp BP BP BP 04/24/18 10:55 98.4 F 93 16 99/58 95/60 04/24/18 08:51 16 04/24/18 07:00 98.7 F 94 16 04/23/18 23:30 18 04/23/18 23:00 98.7 F 65 18 04/23/18 22:16 98.9 F 110 H 20 94/56 04/23/18 21:07 106 H 18 91/50 04/23/18 20:26 102 H 18 87/48 04/23/18 19:45 102 H 20 96/56 04/23/18 18:45 106 H 20 92/56 04/23/18 17:45 107 H 20 84/42 04/23/18 16:50 100 20 92/52 04/23/18 15:58 97 17 103/51 04/23/18 14:47 97.7 F 78 16 91/43 BP BP BP Pulse Ox 04/24/18 10:55 96/55 04/24/18 08:51 04/24/18 07:00 100/58 98 04/23/18 23:30 04/23/18 23:00 95/47 97 04/23/18 22:16 99 04/23/18 21:07 100 04/23/18 20:26 100 04/23/18 19:45 99 04/23/18 18:45 99 04/23/18 17:45 97 04/23/18 16:50 100 04/23/18 15:58 97 04/23/18 14:47 99 Intake and Output 04/23/18 04/24/18 04/24/18 22:59 06:59 14:59 Intake Total 100 720 Balance 100 720 Intake: Oral 100 720 Other: Voiding Method Toilet Toilet # Voids 2 1 # Bowel Movements 0 0 Weight 67.585 kg 67.585 kg General: The patient is awake and alert, in no distress Eye: there is normal conjunctiva bilaterally. Neck: The neck is supple, there is no JVD. Cardiovascular: Normal S1-S2, no S3-S4, no murmurs. Respiratory: Lungs clear to auscultation bilaterally Gastrointestinal: Abdomen is soft, nontender Musculoskeletal: There is no pedal edema. Neurological:. Speech is normal. Skin: Skin is warm and dry Results CBC & Chem 7: 04/24/18 09:02 04/24/18 10:44 Labs: Abnormal Lab Results - Last 24 Hours (Table) 04/23/18 04/23/18 04/23/18 Range/Units 15:10 15:10 15:10 WBC 31.7 H* (4.0-11.0) k/uL RBC (3.80-5.40) m/uL Hgb (11.4-16.0) gm/dL Neutrophils # 27.6 H (1.3-7.7) k/uL Monocytes # 1.5 H (0-1.0) k/uL PT 15.8 H (9.0-12.0) sec INR 1.7 H (<1.2) Chloride (98-107) mmol/L Carbon Dioxide 19 L (22-30) mmol/L BUN 19 H (7-17) mg/dL Creatinine (0.52-1.04) mg/dL Glucose (74-99) mg/dL Plasma Lactic Acid Eliezer (0.7-2.0) mmol/L Calcium (8.4-10.2) mg/dL TSH (0.465-4.680) mIU/L Urine Appearance (Clear) Urine Protein (Negative) Urine Ketones (Negative) Ur Leukocyte Esterase (Negative) Urine WBC (0-5) /hpf Ur Squamous Epith Cells (0-4) /hpf Amorphous Sediment (None) /hpf Hyaline Casts (0-2) /lpf Urine Mucus (None) /hpf Urine Cocaine Screen (NotDetected) 04/23/18 04/23/18 04/23/18 Range/Units 15:10 17:05 17:05 WBC (4.0-11.0) k/uL RBC (3.80-5.40) m/uL Hgb (11.4-16.0) gm/dL Neutrophils # (1.3-7.7) k/uL Monocytes # (0-1.0) k/uL PT (9.0-12.0) sec INR (<1.2) Chloride (98-107) mmol/L Carbon Dioxide (22-30) mmol/L BUN (7-17) mg/dL Creatinine (0.52-1.04) mg/dL Glucose (74-99) mg/dL Plasma Lactic Acid Eliezer 4.6 H* (0.7-2.0) mmol/L Calcium (8.4-10.2) mg/dL TSH (0.465-4.680) mIU/L Urine Appearance Cloudy H (Clear) Urine Protein 1+ H (Negative) Urine Ketones 2+ H (Negative) Ur Leukocyte Esterase Large H (Negative) Urine WBC 28 H (0-5) /hpf Ur Squamous Epith Cells 19 H (0-4) /hpf Amorphous Sediment Rare H (None) /hpf Hyaline Casts 87 H (0-2) /lpf Urine Mucus Many H (None) /hpf Urine Cocaine Screen Detected H (NotDetected) 04/24/18 04/24/18 04/24/18 Range/Units 09:02 10:44 10:44 WBC 13.0 H (4.0-11.0) k/uL RBC 3.73 L (3.80-5.40) m/uL Hgb 11.3 L (11.4-16.0) gm/dL Neutrophils # 8.6 H (1.3-7.7) k/uL Monocytes # (0-1.0) k/uL PT 19.4 H (9.0-12.0) sec INR 2.1 H (<1.2) Chloride 111 H (98-107) mmol/L Carbon Dioxide (22-30) mmol/L BUN (7-17) mg/dL Creatinine 0.51 L (0.52-1.04) mg/dL Glucose 114 H (74-99) mg/dL Plasma Lactic Acid Eliezer (0.7-2.0) mmol/L Calcium 8.1 L (8.4-10.2) mg/dL TSH 0.018 L (0.465-4.680) mIU/L Urine Appearance (Clear) Urine Protein (Negative) Urine Ketones (Negative) Ur Leukocyte Esterase (Negative) Urine WBC (0-5) /hpf Ur Squamous Epith Cells (0-4) /hpf Amorphous Sediment (None) /hpf Hyaline Casts (0-2) /lpf Urine Mucus (None) /hpf Urine Cocaine Screen (NotDetected) Thrombosis Risk Factor Assmnt - Choose All That Apply Any of the Below Risk Factors Present?: No Other Risk Factors: No Thrombosis Risk Factor Assessment Level: Very Low Risk Assessment and Plan Assessment: 1. Suspected acute gastritis, now improving. Computed tomography scan of the abdomen and pelvis shows no acute findings. 2. Severe dehydration, improved with IV fluid hydration. Secondary to nausea and vomiting. 3. Coagulopathy, exact etiology unclear. There was multiple case reports recently about crack cocaine being laced with Rodenticide causing coagulopathy and significant bleeding in patients. I would give the patient 1 dose of vitamin K 5 mg right now. I would consult hematology. We'll continue to monitor CBC and INR. Liver function tests within normal range. He also be simply attributed to liver shock secondary to hypotension 4. Substance abuse including cocaine, counseled extensively to quit 5. Uncomplicated urinary tract infection, start IV ceftriaxone. Initial urinalysis sample was contaminated. Repeat urinalysis ordered.
[2018-04-24 13:07] LABS: Appearance,Urine Clear (Clear); Bilirubin,Urine Negative (Negative); Blood,Urine Negative (Negative); Color,Urine Colorless; Glucose,Urine (UA) Negative (Negative); Ketones,Urine Negative (Negative); Leukocyte Esterase,Urine Trace (Negative); Mucus,Urine Rare /hpf; Nitrite,Urine Negative (Negative); Protein,Urine Negative (Negative); RBC,Urine 1 /hpf (0-5); Specific Gravity,Urine 1.006 (1.001-1.035); Squamous Epithelial Cell,Urine 2 /hpf (0-4); Urobilinogen,Urine <2.0 mg/dL (<2.0); WBC,Urine 5 /hpf (0-5)
[2018-04-25 00:18] VITALS: TEMP 98.8
[2018-04-25] MEDS: SODIUM CHLORIDE 0.9% 1,000 ML IV SCH ×2 (03:49→12:51)
[2018-04-25] MEDS: ACETAMINOPHEN TAB 500 MG TAB PO PRN ×2 (04:56→10:39)
[2018-04-25 06:21] VITALS: BP 106/62; PULSE 90
[2018-04-25] MEDS: cefTRIAXone IN SWFI 1,000 MG/10 ML SYRINGE IVP SCH (08:33)
[2018-04-25] MEDS: FAMOTIDINE 20 MG TAB PO SCH (08:33)
[2018-04-25 08:36] LABS: Basophils % (A) 0 %; Eosinophils # (A) 0.2 k/uL (0-0.7); Eosinophils % (A) 3 %; HCT 35.3 % (34.0-46.0); HGB 11.7 gm/dL (11.4-16.0); Lymphocytes # (A) 3.1 k/uL (1.0-4.8); Lymphocytes % (A) 44 %; MCH 30.4 pg (25.0-35.0); MCHC 33.1 g/dL (31.0-37.0); Mean Platelet Volume 6.8; Monocytes # (A) 0.5 k/uL (0-1.0); Monocytes % (A) 7 %; Neutrophils % (A) 43 %; Platelet Count 211 k/uL (150-450); RBC 3.84 m/uL (3.80-5.40); RDW 14.3 % (11.5-15.5)
[2018-04-25 08:45] LABS: INR 1.5 (<1.2); Prothrombin Time 13.6 sec (9.0-12.0)
[2018-04-25 09:49] LABS: ALT 44 U/L (9-52); AST 32 U/L (14-36); Albumin 3.3 g/dL (3.5-5.0); Alkaline Phosphatase 51 U/L (38-126); Anion Gap 11 mmol/L; Blood Urea Nitrogen 6 mg/dL (7-17); Calcium 8.7 mg/dL (8.4-10.2); Carbon Dioxide 23 mmol/L (22-30); Chloride 109 mmol/L (98-107); Glucose 86 mg/dL (74-99); Potassium 3.6 mmol/L (3.5-5.1); Sodium 143 mmol/L (137-145); Total Bilirubin 0.2 mg/dL (0.2-1.3); Total Protein 5.6 g/dL (6.3-8.2)
[2018-04-25] MEDS ORDERED: PHYTONADIONE ORAL 5 MG/5 ML ORAL.SYRG PO STA (14:14)
--- NOTE | 2018-04-25 15:04 | P.CONS ---
History of Present Illness - Reason for Consult Consult date: 04/25/18 Coagulopathy - History of Present Illness The patient is a 17-year-old white female, in otherwise good health. The patient had been in her usual state of health until about 2 days prior to admission. At that time she complained of feeling nauseous. She then developed progressive symptoms and on the day of admission started vomiting multiple times. She ultimately vomited up undigested food as well as bile. She therefore came into the emergency room. She had extensive workup including labs, as well as multiple abdominal imaging including abdominal x-ray, abdominal ultrasound and computed tomography scan of the abdomen and pelvis. These do not show any significant abnormality. On admission INR was noted to be elevated at 1.7. The patient denied any anticoagulation, recent antibiotic use, bowel surgery, or history of chronic diarrhea. INRs were increased to 2.1. The patient then received 5 mg of vitamin K by mouth, with improvement in INR to 1.5. Consult was therefore placed a further evaluation and recommendations The patient states that she has been having somewhat easy bruising on her distal lower extremities over the past couple of months. However she denies any soft tissue bleeding, blood in the stool or urine, or from the nose or mouth. The patient does have a history of smoking marijuana off and on. On urinalysis looks clean, cocaine was positive. The patient subsequently admitted to using cocaine occasionally. As noted in the admitting service history and physical, warfarin has been used to mixed with Cocaine, as well as other illicit drugs. Review of Systems Constitutional: Reports poor appetite, Reports weakness Eyes: denies blurred vision, denies pain Ears, nose, mouth and throat: Denies headache, Denies sore throat Cardiovascular: Denies chest pain, Denies shortness of breath Respiratory: Denies cough Gastrointestinal: Reports abdominal pain, Reports nausea, Reports vomiting Genitourinary: Denies dysuria, Denies hematuria Menstruation: Reports period normal Musculoskeletal: Denies myalgias Integumentary: Reports unusual bruising Neurological: Denies numbness, Denies weakness Psychiatric: Denies anxiety, Denies depression Endocrine: Reports as per HPI Hematologic/Lymphatic: Reports as per HPI, Reports easy bruising Past Medical History Past Medical History: No Reported History History of Any Multi-Drug Resistant Organisms: None Reported Past Surgical History: Adenoidectomy Additional Past Surgical History / Comment(s): Eyelid surgery. Past Anesthesia/Blood Transfusion Reactions: No Reported Reaction Past Psychological History: Anxiety, Depression Smoking Status: Current every day smoker Past Alcohol Use History: None Reported Past Drug Use History: Marijuana Additional Drug Use History / Comment(s): Patient states that she smokes MJ twice weekly. - Past Family History Mother Family Medical History: No Reported History Father History Unknown: Yes Sister(s) Family Medical History: No Reported History Medications and Allergies Home Medications Medication Instructions Recorded Confirmed Type No Known Home Medications [No 04/23/18 04/23/18 History Known Home Medications] Allergies Allergy/AdvReac Type Severity Reaction Status Date / Time No Known Allergies Allergy Verified 04/23/18 15:21 Physical Exam Vitals: Vital Signs Temp Pulse Resp BP Pulse Ox 04/25/18 08:00 16 04/25/18 06:00 98.8 F 90 16 106/62 98 04/24/18 23:00 98.8 F 88 16 112/73 98 04/24/18 16:00 16 04/24/18 14:54 98.7 F 99 16 105/56 98 Intake and Output 04/24/18 04/25/18 04/25/18 22:59 06:59 14:59 Intake Total 200 200 50 Balance 200 200 50 Intake: Oral 200 200 50 Other: Voiding Method Toilet Toilet # Voids 1 1 # Bowel Movements 0 0 Weight 67.585 kg - Constitutional General appearance: no acute distress - EENT Eyes: EOMI, PERRLA ENT: hearing grossly normal, normal oropharynx - Neck Neck: no lymphadenopathy - Respiratory Respiratory: bilateral: CTA - Cardiovascular Rhythm: regular Heart sounds: normal: S1, S2 - Gastrointestinal General gastrointestinal: normal bowel sounds, soft - Integumentary Integumentary: normal - Neurologic Neurologic: CNII-XII intact - Musculoskeletal Musculoskeletal: generalized weakness Results CBC & Chem 7: 04/25/18 08:20 04/25/18 08:20 Labs: Abnormal Lab Results - Last 24 Hours (Table) 04/25/18 04/25/18 Range/Units 08:20 08:20 PT 13.6 H (9.0-12.0) sec INR 1.5 H (<1.2) Chloride 109 H (98-107) mmol/L BUN 6 L (7-17) mg/dL Creatinine 0.50 L (0.52-1.04) mg/dL Total Protein 5.6 L (6.3-8.2) g/dL Albumin 3.3 L (3.5-5.0) g/dL Abdominal x-ray: report reviewed CT scan - abdomen: report reviewed CT scan - pelvis: report reviewed US - abdomen: report reviewed Assessment and Plan (1) Coagulopathy Narrative/Plan: The patient presented with elevated PT and INR, with normal PTT. She denied any history suggestive of chronic vitamin K malabsorption, such as bowel surgery , chronic diarrhea, recent antibiotic use or chronically decreased oral intake. Transient vitamin K deficiency can occur due to acute GI illnesses, such as the patient's. However she gives a history of somewhat easy bruising for the prior 2 months. - The INR has improved significantly with oral vitamin K. This essentially rules out a clotting factor antagonist. Acute deficiency is a possibility. In addition, use of cocaine laced with warfarin is also a major differential diagnosis. Congenital factor VII deficiency cannot be reliably tested for this time as the patient has received vitamin K. - INR is well within a safe range. I will give her an additional 2.5 mg of vitamin K. I would recommend follow-up in the office in about 5-6 weeks. I will repeat coags in the office. If those are still disordered, (assuming no more cocaine or other anticoagulant use, or other GI symptomatology), then I will work her up for factor deficiency. Okay to discharge from our standpoint whenever okay with the admitting service Current Visit: Yes Status: Acute Code(s): D68.9 - COAGULATION DEFECT, UNSPECIFIED SNOMED Code(s): 27487784 Plan: Defer to the admitting service for management of her other medical problems
--- NOTE | 2018-04-25 15:21 | P.DS ---
Providers Date of admission: 04/24/18 14:33 Expected date of discharge: 04/25/18 Attending physician: Marcelino Walters Consults: 04/24/18 13:02 Consult Physician Routine Consulting Provider: Artem Ferris Consult Reason/Comments: Coagulopathy Do you want consulting provider notified?: Yes Primary care physician: Krystina Mora [facility] Hospital Course: 1. Acute gastritis, now improving. Computed tomography scan of the abdomen and pelvis shows no acute findings. 2. Severe dehydration, improved with IV fluid hydration. Secondary to nausea and vomiting. 3. Coagulopathy, exact etiology unclear. Possibly attributed to her cocaine use has now had swelling on the cocaine is being replaced with rodent the side. Patient was counseled extensively. She was seen by hematology. She was given oral vitamin K and her INR improved. Liver function tests within normal range. 4. Substance abuse including cocaine, counseled extensively to quit Plan - Discharge Summary Discharge Rx Participant: Yes New Discharge Prescriptions: No Action No Known Home Medications [No Known Home Medications] Discharge Medication List No Known Home Medications [No Known Home Medications] 04/23/18 [History] Follow up Appointment(s)/Referral(s): Artem Ferris MD [STAFF PHYSICIAN] - 05/28/18 2:30 pm Krystina Mora MD [Primary Care Provider] - 04/28/18 (office will call patient on saturday04/28/18 to schedule appointment.) Patient Instructions/Handouts: How to Stop Smoking (DC), Cocaine Abuse (DC) Activity/Diet/Wound Care/Special Instructions: Tylenol OTC Q6 hours as needed. No drug use. Stay hydrated. Discharge Disposition: HOME SELF-CARE
== END 2018-04-25 15:53 | disposition home or self-care (01) | DRG 392 ==
LOC: EC 14:33 → 4MS4W 21:37 → OBSVTOIN 04-24 14:33
PROVIDERS: ADMIT Internal Medicine; ATTEND Internal Medicine
DX: K29.00 Acute gastritis without bleeding (principal); D68.9 Coagulation defect, unspecified; E87.2 Acidosis; D72.829 Elevated white blood cell count, unspecified; E86.0 Dehydration; F14.10 Cocaine abuse, uncomplicated; F17.200 Nicotine dependence, unspecified, uncomplicated; I95.9 Hypotension, unspecified; F12.90 Cannabis use, unspecified, uncomplicated; F32.9 Major depressive disorder, single episode, unspecified; F41.9 Anxiety disorder, unspecified; Z71.51 Drug abuse counseling and surveillance of drug abuser; Z98.890 Other specified postprocedural states
CPT/HCPCS: 36415; 74022; 74177; 76700; 80048; 80053; 80306; 81001; 81025; 82533; 82550; 82553; 83605; 83690; 84439; 84443; 84484; 85025; 85379; 85610; 85730; 93005; 96360; 96361; 99285

== ENCOUNTER 2018-11-01 08:22 | Emergency (ER) | payer BC, OTHER ==
[2018-11-01 08:35] VITALS: BP 101/63; PULSE 92; RESP 18; TEMP 98.7
--- NOTE | 2018-11-01 08:43 | ED ---
General Adult HPI - General Chief complaint: ENT Stated complaint: sent from [facility] Time Seen by Provider: 11/01/18 08:37 Source: patient, RN notes reviewed Mode of arrival: ambulatory Limitations: no limitations - History of Present Illness Initial comments: Patient is a 18-year-old female presenting to the emergency room today with a chief complaint of a sore throat over the last 3 days. She does admit that hurts when she swallows. Does admit that she's had fever. States that she's currently at [facility] for rehab for drug addiction. She states she's been there for 5 days. Patient doesn't that she's been using Tylenol Motrin for fever. She does admit that she seems white spots to the posterior pharynx. Denies any difficulty swallowing. States she's had minimal cough. Denies any other complaints or symptoms. Patient denies any recent fever, chills, shortness of breath, chest pain, back pain, abdominal pain, nausea or vomiting, headaches or visual changes, or any other complaints. - Related Data Home Medications Medication Instructions Recorded Confirmed Acetaminophen [Tylenol Arthritis] 650 mg PO Q4H PRN 11/01/18 11/01/18 Amoxicillin 500 mg PO TID 11/01/18 11/01/18 Buprenorphine HCl/Naloxone HCl 1 film SL Q6H 11/01/18 11/01/18 [Suboxone 4 mg-1 mg Sl Film] Calcium/Magnes 1 tab PO TID PRN 11/01/18 11/01/18 Ibuprofen [Motrin] 600 mg PO Q6H PRN 11/01/18 11/01/18 Multivitamins, Thera [Multivitamin 1 tab PO DAILY 11/01/18 11/01/18 (formulary)] Ondansetron HCl [Zofran Oral Soln] 4 mg PO Q6H PRN 11/01/18 11/01/18 Ondansetron HCl [Zofran] 8 mg PO Q6H PRN 11/01/18 11/01/18 Thiamine HCl [Vitamin B-1] 100 mg PO DAILY 11/01/18 11/01/18 busPIRone HCl [Buspar] 10 mg PO TID PRN 11/01/18 11/01/18 cloNIDine HCL [Catapres] 0.1 mg PO Q4H 11/01/18 11/01/18 traZODone HCL 50 - 150 mg PO HS 11/01/18 11/01/18 Previous Rx's Medication Instructions Recorded Ibuprofen [Motrin] 600 mg PO Q6HR PRN #40 day 11/01/18 valACYclovir HCL [Valtrex] 1,000 mg PO BID #20 tablet 11/01/18 Allergies Allergy/AdvReac Type Severity Reaction Status Date / Time No Known Allergies Allergy Verified 11/01/18 08:47 Review of Systems ROS Statement: Those systems with pertinent positive or pertinent negative responses have been documented in the HPI. ROS Other: All systems not noted in ROS Statement are negative. Past Medical History Past Medical History: No Reported History History of Any Multi-Drug Resistant Organisms: None Reported Past Surgical History: Adenoidectomy Additional Past Surgical History / Comment(s): Eyelid surgery. Past Anesthesia/Blood Transfusion Reactions: No Reported Reaction Past Psychological History: Anxiety, Depression Smoking Status: Current every day smoker Past Alcohol Use History: None Reported Past Drug Use History: Heroin, Marijuana - Past Family History Mother Family Medical History: No Reported History Father History Unknown: Yes Sister(s) Family Medical History: No Reported History General Exam - General Exam Comments Initial Comments: General: The patient is awake and alert, in no distress, and does not appear acutely ill. Eye: There is normal conjunctiva bilaterally. Ears, nose, mouth and throat: There are moist mucous membranes. 2+ tonsils with exudate on the left posterior pharynx. Neck: The neck is supple, there is no tenderness or JVD. Cardiovascular: There is a regular rate and rhythm. No murmur, rub or gallop is appreciated. Respiratory: Lungs are clear to auscultation, respirations are non-labored, breath sounds are equal. No wheezes, stridor, rales, or rhonchi. Musculoskeletal: Normal ROM, no tenderness. Neurological: A&O x 3. CN II-XII intact, There are no obvious motor or sensory deficits. Coordination appears grossly intact. Speech is normal. Skin: Skin is warm and dry and no rashes or lesions are noted. Psychiatric: Cooperative, appropriate mood & affect, normal judgment. Limitations: no limitations Course Vital Signs 11/01/18 08:33 Temperature 98.7 F Pulse Rate 92 Respiratory 18 Rate Blood Pressure 101/63 O2 Sat by Pulse 98 Oximetry Medical Decision Making - Medical Decision Making 18-year-old female presents to the emergency room today with a chief complaint of a sore throat that started 5 days ago. Strength test was obtained and negative. The emergency room. I did go back to the room to tell patient of the results and she also stated that she wanted to be checked for possible STDs. She states she has had recent unprotected sex. She states over the last 5 days she's noticed a outbreak of lesions to the genital area. She states never had any lactose in the past. She does admit that they do burn and are painful. She denies any other complaints. Physical exam does show evidence for herpes infection. Patient will be started on antivirals. Patient was also treated for STDs prophylactically with Rocephin and azithromycin here in emergency room. Cultures are pending off of patient's urinalysis as genital swabs were unavailable in the ER at this time. - Lab Data Lab Results 11/01/18 Range/Units 08:41 Group A Strep Rapid Negative (Negative) Disposition Clinical Impression: Acute pharyngitis, Genital lesion, female Disposition: HOME SELF-CARE Condition: Good Instructions: Genital Herpes Simplex (ED), Pharyngitis (ED) Additional Instructions: Please follow-up with family physician/health department for further testing for STDs. Please refrain from any sexual contact until all symptoms have completely resolved. Be aware that you are gentle lesions appear to be consistent with genital herpes and is contagious to others with a direct contact an open sores. Please use medications as prescribed. Please return for any other concerns. Prescriptions: Ibuprofen [Motrin] 600 mg PO Q6HR PRN #40 day PRN Reason: Pain valACYclovir HCL [Valtrex] 1,000 mg PO BID #20 tablet Is patient prescribed a controlled substance at d/c from ED?: No Referrals: None,Stated [Primary Care Provider] - 1-2 days Time of Disposition: 10:59
[2018-11-01] MEDS ORDERED: cefTRIAXone 250 MG VIAL IM STA (10:07)
[2018-11-01] MEDS ORDERED: AZITHROMYCIN 500 MG TAB PO STA (10:07)
[2018-11-02 12:23] LABS: C. trachomatis,PCR Negative (Neg,Equiv); Chlamydia trachomatis Source Urine; N. gonorrhoeae,PCR Negative (Neg,Equiv); Neisseria Source Urine
== END 2018-11-01 11:11 | disposition home or self-care (01) ==
LOC: EC 08:22
DX: J02.9 Acute pharyngitis, unspecified (principal); B00.9 Herpesviral infection, unspecified; A64 Unspecified sexually transmitted disease; F19.20 Other psychoactive substance dependence, uncomplicated; R05 Cough; F32.9 Major depressive disorder, single episode, unspecified; F41.9 Anxiety disorder, unspecified; F17.200 Nicotine dependence, unspecified, uncomplicated; Z79.899 Other long term (current) drug therapy; Z90.89 Acquired absence of other organs
CPT/HCPCS: 87491; 87591; 87081; 87430; 99283; 96372; J0696